=== PATIENT | female | born 1955 | race Caucasian/White ===

== ENCOUNTER 2018-08-05 01:49 | Observation (INO) | payer BC ==
[2018-08-05 02:59] LABS: ADD MAN DIFF? NO; BASOPHILS % 0.5 % (0.0-2.0); EOSINOPHILS # 0.2 10^3/ul (0.0-0.5); EOSINOPHILS % 2.4 % (0.0-7.0); HEMATOCRIT 41.5 % (37.0-47.0); HEMOGLOBIN 14.4 g/dl (12.0-16.0); LYMPHOCYTES # 2.9 10^3/ul (0.8-2.9); LYMPHOCYTES % 37.1 % (15.0-51.0); MEAN CORPUSCULAR HEMOGLOBIN 28.6 pg (29.0-33.0); MEAN CORPUSCULAR HGB CONC 34.7 g/dl (32.0-37.0); MEAN CORPUSCULAR VOLUME 82.3 fl (82.0-101.0); MEAN PLATELET VOLUME 10.7 fl (7.4-10.4); MONOCYTE # 0.6 10^3/ul (0.3-0.9); MONOCYTES % 7.7 % (0.0-11.0); NEUTROPHIL # 4.1 10^3/ul (1.6-7.5); NEUTROPHILS % 52.2 % (39.0-77.0); PLATELET COUNT 236 10^3/UL (140-415); RED BLOOD COUNT 5.04 10^6/ul (4.20-5.40); RED CELL DISTRIBUTION WIDTH 11.7 % (11.5-14.5)
[2018-08-05 02:59] LABS: WHITE BLOOD COUNT 7.8 10^3/ul (4.8-10.8)
[2018-08-05 03:16] LABS: ANION GAP 10 (5-13); BLOOD UREA NITROGEN 12 mg/dl (7-20); CALCIUM 9.3 mg/dl (8.4-10.2); CARBON DIOXIDE 25 mmol/L (21-31); CHLORIDE 105 mmol/L (97-110); CREATININE 0.36 mg/dl (0.44-1.00); Estimated GFR > 60 mL/min (>60); GLUCOSE 259 mg/dl (70-220); POTASSIUM 3.9 mmol/L (3.5-5.1); SODIUM 140 mmol/L (135-144)
[2018-08-05] MEDS: ASPIRIN 325 MG TAB PO (03:26)
[2018-08-05] MEDS: NITROGLYCERIN 2% 1 GM OINT PKT TD (03:26)
[2018-08-05 03:28] LABS: TROPONIN-I < 0.012 ng/ml (0.000-0.120)
[2018-08-05] MEDS ORDERED: ONDANSETRON 4 MG INJ IV ×2 (05:30→10:30)
[2018-08-05] MEDS ORDERED: ACETAMINOPHEN 325 MG TAB PO ×2 (05:30→10:30)
[2018-08-05 09:38] LABS: CREATINE KINASE 60 IU/L (23-200)
[2018-08-05 09:51] LABS: CK INDEX 1.3; CK-MB 0.78 ng/ml (0.0-2.4); TROPONIN-I 0.014 ng/ml (0.000-0.120)
[2018-08-05] MEDS ORDERED: DOCUSATE SODIUM 100 MG CAP PO (10:30)
[2018-08-05] MEDS ORDERED: HYDROCODONE/APAP (5/325) TAB PO (10:30)
[2018-08-05] MEDS ORDERED: NITROGLYCERIN (SL) 0.4 MG TAB SL (12:00)
[2018-08-05 14:22] LABS: CREATINE KINASE 51 IU/L (23-200)
[2018-08-05 14:34] LABS: CK INDEX 0.9; CK-MB 0.46 ng/ml (0.0-2.4); TROPONIN-I < 0.012 ng/ml (0.000-0.120)
[2018-08-05] MEDS ORDERED: LORAZEPAM 0.5 MG TAB PO (16:00)
[2018-08-05 19:47] LABS: CREATINE KINASE 54 IU/L (23-200)
[2018-08-05 20:00] LABS: CK INDEX 0.9; CK-MB 0.48 ng/ml (0.0-2.4); TROPONIN-I < 0.012 ng/ml (0.000-0.120)
[2018-08-06] MEDS: PANTOPRAZOLE (EC) 40 MG TAB PO (05:58)
[2018-08-06] MEDS ORDERED: PANTOPRAZOLE (EC) 40 MG TAB PO (06:00)
[2018-08-06 06:55] LABS: HEMOGLOBIN A1C 9.8 % (0-5.9)
[2018-08-06 06:58] LABS: HDL CHOLESTEROL 35 mg/dl (35-98); LDL CHOLESTEROL,CALCULATED 153 mg/dl; TRIGLYCERIDES 291 mg/dl (0-149)
[2018-08-06 06:58] LABS: CHOLESTEROL 246 mg/dl (100-200)
[2018-08-06] MEDS: AMLODIPINE 10 MG TAB PO (09:48)
[2018-08-06] MEDS ORDERED: GLUCOSE GEL 15 GRAM TUBE PO ×2 (13:00)
[2018-08-06] MEDS ORDERED: GLUCOSE GEL 15 GRAM TUBE BUCCAL (13:00)
[2018-08-06] MEDS ORDERED: DEXTROSE 50% 50 ML SYRINGE IV ×2 (13:00)
[2018-08-06] MEDS ORDERED: GLUCAGON 1 MG INJ IM (13:00)
[2018-08-06] MEDS: ASPIRIN 81 MG TAB PO (14:11)
[2018-08-06] MEDS: ACCU-CHEK XX (17:47)
[2018-08-06] MEDS: metFORMIN 500 MG TAB PO (17:48)
[2018-08-06] MEDS: INSULIN ASPART [NOVOLOG] 3 ML PEN SC ×2 (18:00→20:04)
[2018-08-06] MEDS: ATORVASTATIN 20 MG TAB PO (20:09)
[2018-08-07] MEDS: ACCU-CHEK XX (01:10)
[2018-08-07] MEDS: PANTOPRAZOLE (EC) 40 MG TAB PO (05:41)
[2018-08-07] MEDS: metFORMIN 500 MG TAB PO ×4 (08:10→22:02)
[2018-08-07] MEDS: AMLODIPINE 10 MG TAB PO (08:10)
[2018-08-07] MEDS: ASPIRIN 81 MG TAB PO (08:10)
[2018-08-07] MEDS: INSULIN ASPART [NOVOLOG] 3 ML PEN SC ×4 (08:37→22:02)
[2018-08-07] MEDS: ATORVASTATIN 20 MG TAB PO (22:02)
[2018-08-08] MEDS: ACCU-CHEK XX (02:00)
[2018-08-08] MEDS: PANTOPRAZOLE (EC) 40 MG TAB PO (06:38)
[2018-08-08] MEDS: AMLODIPINE 10 MG TAB PO (08:27)
[2018-08-08] MEDS: INSULIN ASPART [NOVOLOG] 3 ML PEN SC ×2 (08:27→13:18)
[2018-08-08] MEDS: ASPIRIN 81 MG TAB PO (08:27)
[2018-08-08] MEDS: metFORMIN 500 MG TAB PO (08:28)
== END 2018-08-08 14:20 | disposition home or self-care (01) ==
LOC: 2NE 08-06 14:31 → E/R 01:49 → 2NE 07:53 → TEL 05:10
DX: R07.9 Chest pain, unspecified (principal); I10 Essential (primary) hypertension; E78.00 Pure hypercholesterolemia, unspecified; E11.65 Type 2 diabetes mellitus with hyperglycemia; E78.5 Hyperlipidemia, unspecified; M25.511 Pain in right shoulder
CPT/HCPCS: 36415; 71045; 80048; 80061; 82550; 82553; 82962; 83036; 84484; 85025; 93005; 93306; 99217; 99285-25; G0378